=== PATIENT | female | born 1960 | race Two or more races ===

== ENCOUNTER 2018-05-31 16:30 | Emergency (ER) | payer SELFPAY ==
--- NOTE | 2018-05-31 18:30 | ER Document Report ---
ED Medical Screen (RME) - General Chief Complaint: Chest Pain Stated Complaint: CHEST PAIN, SOB, ARM PAIN Time Seen by Provider: 05/31/18 18:25 Primary Care Provider: ABBEY TAI [Primary Care Provider] - Follow up as needed Notes: 57-year-old female patient with complaints of left-sided chest pain pressure that started yesterday evening about 7:30 PM. This discomfort lasted until about 1 AM in the morning. After that it eased off. It is been occurring today but not as bad but she continues with some shortness of breath. She reports that the pain in the left chest, left shoulder, left arm. She also has pain on top of her head, pain in her left ear, and nausea with sweating. See the nurse's note about some of her other complaints. I have greeted and performed a rapid initial assessment of this patient. A comprehensive ED assessment and evaluation of the patient, analysis of test results and completion of the medical decision making process will be conducted by additional ED providers. TRAVEL OUTSIDE OF THE [place] IN LAST 30 DAYS: No Past Medical History - Social History Chew tobacco use (# tins/day): No Frequency of alcohol use: None Drug Abuse: None - Past Medical History Cardiac Medical History: Reports: Hx Hypercholesterolemia, Hx Hypertension Endocrine Medical History: Reports: Hx Diabetes Mellitus Type 2 Renal/ Medical History: Reports: Hx Kidney Stones. Denies: Hx Peritoneal Dialysis Past Surgical History: Reports: Hx Tubal Ligation - Immunizations Hx Diphtheria, Pertussis, Tetanus Vaccination: No Physical Exam - Vital signs Vitals: Temp Pulse Resp BP Pulse Ox 98.0 F 69 16 143/62 H 100 05/31/18 16:38 05/31/18 16:38 05/31/18 16:38 05/31/18 16:38 05/31/18 16:38 Course - Vital Signs Vital signs: Temp Pulse Resp BP Pulse Ox 98.0 F 69 16 143/62 H 100 05/31/18 16:38 05/31/18 16:38 05/31/18 16:38 05/31/18 16:38 05/31/18 16:38 Doctor's Discharge - Discharge Referrals: ABBEY TAI [Primary Care Provider] - Follow up as needed
[2018-05-31 18:55] LABS: ABSOLUTE EOSINOPHILS # (AUTO) 0.2 10^3/uL (0.0-0.6); ABSOLUTE LYMPHOCYTES (AUTO) 2.8 10^3/uL (0.5-4.7); ABSOLUTE MONOCYTES (AUTO) 0.4 10^3/uL (0.1-1.4); ABSOLUTE NEUT (AUTO) 3.3 10^3/uL (1.7-8.2); BASOPHILS % (AUTO) 0.6 % (0-2); EOSINOPHILS % (AUTO) 3.1 % (0-6); HEMATOCRIT 40.3 % (36.0-47.0); HEMOGLOBIN 13.8 g/dL (12.0-15.5); LYMPHOCYTES % (AUTO) 41.1 % (13-45); MEAN CORPUSCULAR HEMOGLOBIN 30.9 pg (27.0-33.4); MEAN CORPUSCULAR HGB CONC 34.2 g/dL (32.0-36.0); MEAN CORPUSCULAR VOLUME 90 fl (80-97); MONOCYTES % (AUTO) 6.5 % (3-13); PLATELET COUNT 283 10^3/uL (150-450); RED BLOOD COUNT 4.47 10^6/uL (3.72-5.28); RED CELL DISTRIBUTION WIDTH 13.5 % (11.5-14.0); SEGMENTED NEUTROPHILS % (AUTO) 48.7 % (42-78); TOTAL CELLS COUNTED % (AUTO) 100 %; WHITE BLOOD COUNT 6.8 10^3/uL (4.0-10.5)
[2018-05-31 19:00] LABS: APPEARANCE,URINE SLIGHTLY-CLOUDY; BILIRUBIN,URINE NEGATIVE (NEGATIVE); COLOR,URINE YELLOW; GLUCOSE, URINE NEGATIVE (NEGATIVE); KETONES,URINE NEGATIVE (NEGATIVE); LEUKOCYTE ESTERASE,URINE NEGATIVE (NEGATIVE); NITRITE,URINE NEGATIVE (NEGATIVE); PROTEIN,URINE NEGATIVE (NEGATIVE); URINE SPECIFIC GRAVITY 1.025; UROBILINOGEN,URINE NEGATIVE mg/dL (<2.0)
--- NOTE | 2018-05-31 19:08 | RADIOLOGY REPORT (SQ) ---
EXAM DESCRIPTION: CHEST 2 VIEWS COMPLETED DATE/TIME: 05/31/2018 6:52 pm REASON FOR STUDY: Chest pain COMPARISON: 04/01/2011 TECHNIQUE: Frontal and lateral radiographic views of the chest acquired. NUMBER OF VIEWS: Two view. LIMITATIONS: None. FINDINGS: LUNGS AND PLEURA: No pneumothorax. No consolidation or pleural effusion. Small calcified granulomas. MEDIASTINUM AND HILAR STRUCTURES: Slight increased fullness in the upper left peritracheal region, li merrill thyroid enlargement. HEART AND VASCULAR STRUCTURES: Stable. BONES: No acute findings. HARDWARE: None in the chest. OTHER: No other significant finding. IMPRESSION: No acute pulmonary findings.Slight increased fullness in the upper left peritracheal reg ion, likely thyroid enlargement. TECHNICAL DOCUMENTATION: JOB ID: [id number] [id number] 2010 [employer]- All Rights Reserved Reading location - IP/workstation name: [email or web address]
[2018-05-31 19:17] LABS: ALANINE AMINOTRANSFERASE 73 U/L (9-52); ALBUMIN 4.4 g/dL (3.5-5.0); ALKALINE PHOSPHATASE 156 U/L (38-126); ANION GAP 10 (5-19); ASPARTATE AMINO TRANSFERASE 85 U/L (14-36); BILIRUBIN,DIRECT 0.2 mg/dL (0.0-0.4); BILIRUBIN,TOTAL 0.4 mg/dL (0.2-1.3); BLOOD UREA NITROGEN 17 mg/dL (7-20); CALCIUM 10.2 mg/dL (8.4-10.2); CARBON DIOXIDE 29 mmol/L (22-30); CHLORIDE 101 mmol/L (98-107); CREATINE KINASE 188 U/L (30-135); GLUCOSE 104 mg/dL (75-110); POTASSIUM 3.6 mmol/L (3.6-5.0); SODIUM 140.1 mmol/L (137-145); TOTAL PROTEIN 8.6 g/dL (6.3-8.2)
[2018-05-31 19:29] LABS: CREATINE KINASE MB 1.52 ng/mL (<4.55)
[2018-05-31 19:30] LABS: TROPONIN I < 0.012 ng/mL
[2018-05-31] MEDS ORDERED: ASPIRIN 81 MG TABLET, CHEWABLE PO ONE (20:56)
--- NOTE | 2018-05-31 20:56 | ER Document Report ---
ED General - General Chief Complaint: Chest Pain Stated Complaint: CHEST PAIN, SOB, ARM PAIN Time Seen by Provider: 05/31/18 18:25 Primary Care Provider: [facility] [place] [Provider Group] - Follow up in 1 week Notes: Patient is a 57-year-old female that comes emergency department with chief complaint of left-sided chest pain. She states she started noticing last night, she also has pain in her neck and in the back upper part of her shoulder. She states she felt a little bit short of breath and a little bit nauseated from the pain at times. She denies vomiting. She did not eat much today. She denies abdominal pain. She denies headache. She denies injury, fever, cough. Past medical history of hypertension, hyperlipidemia, type 2 diabetes, kidney stones, tubal ligation. Denies personal or family history of cardiac disease or NH. TRAVEL OUTSIDE OF THE [place] IN LAST 30 DAYS: No Past Medical History - General Information source: Patient - Social History Smoking Status: Never Smoker Chew tobacco use (# tins/day): No Frequency of alcohol use: None Drug Abuse: None Lives with: Family Family History: Reviewed & Not Pertinent Patient has suicidal ideation: No Patient has homicidal ideation: No - Past Medical History Cardiac Medical History: Reports: Hx Hypercholesterolemia, Hx Hypertension Endocrine Medical History: Reports: Hx Diabetes Mellitus Type 2 Renal/ Medical History: Reports: Hx Kidney Stones. Denies: Hx Peritoneal Dialysis Past Surgical History: Reports: Hx Tubal Ligation - Immunizations Hx Diphtheria, Pertussis, Tetanus Vaccination: No Review of Systems - Review of Systems Constitutional: No symptoms reported EENT: No symptoms reported Cardiovascular: See HPI Respiratory: See HPI Gastrointestinal: No symptoms reported Genitourinary: No symptoms reported Female Genitourinary: No symptoms reported Musculoskeletal: See HPI Skin: No symptoms reported Hematologic/Lymphatic: No symptoms reported Neurological/Psychological: No symptoms reported Physical Exam - Vital signs Vitals: Temp Pulse Resp BP Pulse Ox 98.0 F 69 16 143/62 H 100 05/31/18 16:38 05/31/18 16:38 05/31/18 16:38 05/31/18 16:38 05/31/18 16:38 - Notes Notes: GENERAL: Alert, interacts well. No acute distress. HEAD: Normocephalic, atraumatic. EYES: Pupils equal, round, and reactive to light. Extraocular movements intact. ENT: Oral mucosa moist, tongue midline. Oropharynx unremarkable. Airway patent. Nares patent, no nasal septal hematoma, TM's intact. NECK: Full range of motion. Supple. Trachea midline. LUNGS: Clear to auscultation bilaterally, no wheezes, rales, or rhonchi. No respiratory distress. Very reproducible chest pain with palpation over the anterior chest wall, extending up into the left shoulder, and also over the left posterior shoulder area. No crepitus, erythema, or other abnormality noted. HEART: Regular rate and rhythm. No murmur ABDOMEN: Soft, non-tender. Non-distended. Bowel sounds present in all 4 quadrants. GENITOURINARY: Deferred EXTREMITIES: Moves all 4 extremities spontaneously. No edema, normal radial and dorsalis pedis pulses bilaterally. No cyanosis. BACK: no cervical, thoracic, lumbar midline tenderness. No saddle anesthesia, normal distal neurovascular exam. NEUROLOGICAL: Alert and oriented x3. Normal speech. [cranial nerves II through XII grossly intact]. PSYCH: Normal affect, normal mood. SKIN: Warm, dry, normal turgor. No rashes or lesions noted. Course - Re-evaluation Re-evalutation: EKG shows sinus rhythm at a rate of 71, no T wave inversions or ST segment changes in consecutive leads, normal axis, normal QTC and MI intervals. Chest x-ray unremarkable except for hazy appearance possibly suggesting thyroid enlargement. CBC unremarkable, chemistry nonspecific, troponin is negative. Heart score is 3 (age, risk factors). Patient has very specific pain on examination with palpation of the left upper chest/pectoralis muscle, left paracervical and left trapezius musculature. Worse with movement. Based on her evaluation and exam I have very low suspicion of aortic dissection, pulmonary embolism, or ACS. I did discuss with patient her details, workup, options. I discussed this with family at bedside, they are interpreting for me on request because patient toni clifford speaks Vietnamese although she does speak limited Lithuanian. Because patient's symptoms are so specific and reproducible on evaluation, likely related to her occupation, she is asking for work release along with medications at home, she was provided with this. I discussed return precautions in detail. Discussed primary care follow-up, they state they will perform this, I did discuss the x- ray and possible thyroid abnormality, they state they have primary care and will follow up with this for ultrasound or other management. Stable at time of discharge. - Vital Signs Vital signs: Temp Pulse Resp BP Pulse Ox 97.9 F 60 18 167/80 H 99 06/01/18 00:01 05/31/18 23:03 06/01/18 00:01 06/01/18 00:01 06/01/18 00:01 - Laboratory Result Diagrams: 05/31/18 18:46 05/31/18 18:46 Laboratory results interpreted by me: 05/31/18 05/31/18 18:46 18:46 AST 85 H ALT 73 H Alkaline Phosphatase 156 H Creatine Kinase 188 H Total Protein 8.6 H Urine Blood MODERATE H Discharge - Discharge Clinical Impression: Neck pain Left shoulder pain Qualifiers: Chronicity: acute Qualified Code(s): M25.512 - Pain in left shoulder Chest pain Qualifiers: Chest pain type: unspecified Qualified Code(s): R07.9 - Chest pain, unspecified Condition: Stable Disposition: HOME, SELF-CARE Additional Instructions: Vang examen y evaluacin sugiere que vang dolor proviene de olga msculos en el pecho, los hombros, la espalda y el roshan. Hunker generalmente se resuelve lentamente. Puede calentar las reas, descansar, andrea los medicamentos recetados hoy. Mickey un seguimiento con vang mdico para jeffery revisin de vang tiroides carrie lo comentamos (vang tiroides se ve shanta en las imgenes esta noche). Regrese si est peor: empeoramiento del dolor, dificultad para respirar, vmitos, fiebre, desmayo o cualquier otro sntoma relacionado. Prescriptions: Methocarbamol [Robaxin 500 mg Tablet] 500 mg PO QID PRN #20 tablet PRN Reason: Naproxen 500 mg PO BID PRN #20 tablet PRN Reason: Forms: Return to Work Referrals: [facility] [place] [Provider Group] - Follow up in 1 week
[2018-05-31] MEDS ORDERED: ASPIRIN 81 MG TABLET, CHEWABLE ONE (22:58)
--- NOTE | 2018-05-31 23:09 | EKG REPORT ---
SEVERITY:- NORMAL ECG - SINUS RHYTHM : Confirmed by: Lyndsey Mir 31-May-2018 23:08:36
[2018-06-01 00:20] VITALS: BP 167/80
== END 2018-06-01 00:20 | disposition home or self-care (01) ==
LOC: ER 16:30
DX: M54.2 Cervicalgia (principal); M25.512 Pain in left shoulder; R07.9 Chest pain, unspecified; R06.02 Shortness of breath; R11.0 Nausea; E78.00 Pure hypercholesterolemia, unspecified; I10 Essential (primary) hypertension; E11.9 Type 2 diabetes mellitus without complications; Z87.442 Personal history of urinary calculi; Z98.51 Tubal ligation status
CPT/HCPCS: 36415; 71046; 80053; 81001; 82550; 82553; 84484; 85025; 93005; 93010; 99284